=== PATIENT | male | born 1980 | race Caucasian/White ===

== ENCOUNTER 2019-03-02 16:03 | Emergency (ER) | payer MEDICAID | END 2019-03-02 16:15 | LOC: LB.ED 16:03 | DX: Z13.9 Encounter for screening, unspecified (principal) ==

== ENCOUNTER 2025-02-24 08:29 | Emergency (ER) | payer OTHER | END 2025-02-24 10:10 | disposition home or self-care (01) | LOC: LB.ED 08:29 | DX: S93.491A Sprain of other ligament of right ankle, initial encounter (principal); F17.210 Nicotine dependence, cigarettes, uncomplicated; Z88.0 Allergy status to penicillin; Z88.2 Allergy status to sulfonamides; Z86.16 Personal history of COVID-19; X50.0XXA Overexertion from strenuous movement or load, initial encounter; Y93.89 Activity, other specified | CPT/HCPCS: 99283 ==